=== PATIENT | male | born 1965 | race Two or more races ===

== ENCOUNTER → 2020-10-12 08:00 | Outpatient (CLI) | payer OTHER ==
[~2020-10-12 08:00] MED LIST: DICLOFENAC POTA50 MG PO
== END | disposition home or self-care (01) ==
LOC: LAB 08:00
PROVIDERS: ATTEND Urology
DX: I10 Essential (primary) hypertension (principal); N40.1 Benign prostatic hyperplasia with lower urinary tract symptoms; C61 Malignant neoplasm of prostate; G11.0 Congenital nonprogressive ataxia; N39.0 Urinary tract infection, site not specified

== ENCOUNTER → 2021-02-21 07:06 | Outpatient (CLI) | payer OTHER | END | disposition home or self-care (01) | LOC: LAB 07:06 | PROVIDERS: ATTEND Urology | DX: I10 Essential (primary) hypertension (principal); N39.0 Urinary tract infection, site not specified; C61 Malignant neoplasm of prostate ==

== ENCOUNTER 2021-04-07 10:28 | Outpatient (CLI) | payer OTHER | END 2021-04-07 10:30 | disposition home or self-care (01) | LOC: LAB 10:28 | PROVIDERS: ATTEND General Practice | DX: R05.8 Other specified cough (principal); J15.8 Pneumonia due to other specified bacteria ==

== ENCOUNTER 2021-04-27 08:00 | Outpatient (CLI) | payer OTHER | END 2021-04-27 08:30 | disposition home or self-care (01) | LOC: PPH VACUNA 08:00 | PROVIDERS: ATTEND Emergency Medicine Pediatric Emergency Medicine | DX: Z23 Encounter for immunization (principal) ==

== ENCOUNTER 2021-06-21 12:23 | Emergency (ER) | payer OTHER ==
[~2021-06-21] VITALS: Ht 185.4 cm; Wt 95.3 kg
[2021-06-21] MEDS ORDERED: KETO10TA2 PO (15:41)
[2021-06-21] MEDS ORDERED: NORFLEX100MG PO (15:41)
== END 2021-06-21 16:44 | disposition home or self-care (01) ==
LOC: ER 12:23
DX: M25.561 Pain in right knee (principal); I10 Essential (primary) hypertension; E03.9 Hypothyroidism, unspecified

== ENCOUNTER 2021-06-23 06:13 | Outpatient (CLI) | payer OTHER ==
[~2021-06-23 06:13] MED LIST changes: +KETO10TA2 PO; +NORFLEX100MG PO
== END 2021-06-23 06:14 | disposition home or self-care (01) ==
LOC: LAB 06:13
PROVIDERS: ATTEND General Practice
DX: Z00.00 Encounter for general adult medical examination without abnormal findings (principal); E78.5 Hyperlipidemia, unspecified; E55.9 Vitamin D deficiency, unspecified; Z85.46 Personal history of malignant neoplasm of prostate; E53.8 Deficiency of other specified B group vitamins; R42 Dizziness and giddiness; R10.2 Pelvic and perineal pain; M54.9 Dorsalgia, unspecified

== ENCOUNTER 2021-07-19 07:27 | Outpatient (CLI) | payer OTHER | END 2021-07-19 07:28 | disposition home or self-care (01) | LOC: NUCLEAR 07:27 | PROVIDERS: ATTEND General Practice | DX: M79.604 Pain in right leg (principal) ==

== ENCOUNTER 2021-07-20 07:39 | Outpatient (CLI) | payer OTHER | END 2021-07-20 07:42 | disposition home or self-care (01) | LOC: NUCLEAR 07:39 | PROVIDERS: ATTEND General Practice | DX: M79.604 Pain in right leg (principal) ==

== ENCOUNTER 2021-10-10 13:49 | Outpatient (CLI) | payer OTHER | END 2021-10-10 15:00 | disposition home or self-care (01) | LOC: LAB 13:49 | PROVIDERS: ATTEND Urology | DX: Z85.46 Personal history of malignant neoplasm of prostate (principal) ==

== ENCOUNTER 2021-11-03 06:46 | Outpatient (CLI) | payer OTHER | END 2021-11-03 07:44 | disposition home or self-care (01) | LOC: LAB 06:46 | PROVIDERS: ATTEND Urology | DX: R10.2 Pelvic and perineal pain (principal) ==

== ENCOUNTER 2021-11-03 07:12 | Outpatient (CLI) | payer OTHER | END 2021-11-03 09:57 | disposition home or self-care (01) | LOC: MRI 07:12 | PROVIDERS: ATTEND Urology | DX: C61 Malignant neoplasm of prostate (principal) | CPT/HCPCS: 72197 ==

== ENCOUNTER 2022-02-08 15:54 | Outpatient (CLI) | payer OTHER | END 2022-02-08 15:59 | disposition home or self-care (01) | LOC: LAB 15:54 | PROVIDERS: ATTEND Internal Medicine Gastroenterology | DX: Z03.818 Encounter for observation for suspected exposure to other biological agents ruled out (principal); Z20.822 Contact with and (suspected) exposure to COVID-19 ==

== ENCOUNTER 2022-11-03 08:12 | Outpatient (CLI) | payer OTHER | END 2022-11-03 08:13 | disposition home or self-care (01) | LOC: LAB 08:12 | PROVIDERS: ATTEND General Practice | DX: Z20.822 Contact with and (suspected) exposure to COVID-19 (principal); E78.5 Hyperlipidemia, unspecified; E55.9 Vitamin D deficiency, unspecified; C61 Malignant neoplasm of prostate; R10.9 Unspecified abdominal pain; R68.82 Decreased libido; Z00.00 Encounter for general adult medical examination without abnormal findings ==

== ENCOUNTER → 2023-02-06 | Outpatient (CLI) | payer OTHER | END | disposition home or self-care (01) | LOC: RAD 02-01 11:13 | PROVIDERS: ATTEND General Practice | DX: M54.51 Vertebrogenic low back pain (principal); M25.511 Pain in right shoulder; M79.641 Pain in right hand ==

== ENCOUNTER 2023-02-08 07:41 | Outpatient (CLI) | payer OTHER | END 2023-02-08 15:00 | disposition home or self-care (01) | LOC: TOM 07:41 | PROVIDERS: ATTEND General Practice | DX: R51.9 Headache, unspecified (principal); R42 Dizziness and giddiness ==

== ENCOUNTER 2023-02-19 07:53 | Outpatient (CLI) | payer OTHER ==
[2023-02-19 08:22] LABS: HEMATOCRIT 45.4 % (39.0-48.0); HEMOGLOBIN 14.8 g/dL (13-16.00); MEAN CELL VOLUME 91.6 fL (80.0-100.00); MEAN CORPUSCULAR HGB CONC 32.7 g/dl (32.0-36.0); PLATELET COUNT 268 K/uL (150-450); RED BLOOD COUNT 4.95 M/uL (4.00-6.00); RED CELL DISTRIBUTION WIDTH 13.6 % (11.5-14.5); URINE APPEARANCE Clear; URINE BILIRRUBIN Negative (NEGATIVE); URINE BLOOD Negative; URINE COLOR Yellow; URINE GLUCOSE Negative (NEGATIVE); URINE LEUKOCYTE Trace; URINE NITRATE Negative; URINE PROTEIN Negative (NEGATIVE); URINE UROBILINOGEN 0.2 E.U./dl
[2023-02-19 08:23] LABS: URINE WBC 2.1 uL (0.0-23.2)
[2023-02-19 08:30] LABS: URINE BACTERIA 0 uL (0.0-1933); URINE EPITHELIAL CELLS 0.7 uL (0.0-38.8)
[2023-02-19 09:14] LABS: ALBUMIN 3.7 gm/dL (3.4-5.0); BILIRUBIN TOTAL 0.57 mg/dL (0.3-1.2); CALCIUM 9.5 mg/dL (8.5-10.1); CREATININE SERUM 0.94 mg/dL (0.70-1.30); GFR 82.43; GLOBULINA 3.5 G/DL (2.4-3.5); POTASSIUM 4.8 mEq/L (3.5-5.1); TOTAL PROTEIN 7.2 gm/dL (6.4-8.2)
== END 2023-02-19 08:50 | disposition home or self-care (01) ==
LOC: LAB 07:53
DX: B35.1 Tinea unguium (principal)

== ENCOUNTER 2023-03-21 08:35 | Outpatient (CLI) | payer OTHER | END 2023-03-21 08:43 | disposition home or self-care (01) | LOC: MRI 08:35 | PROVIDERS: ATTEND Physical Medicine & Rehabilitation | DX: M54.16 Radiculopathy, lumbar region (principal) | CPT/HCPCS: 72148 ==

== ENCOUNTER 2023-04-13 09:06 | Outpatient (CLI) | payer OTHER ==
[2023-04-13 10:11] LABS: HEMATOCRIT 43.5 % (39.0-48.0); MEAN CORPUSCULAR HEMOGLOBIN 30.7 pg (27.00-32.0); MEAN CORPUSCULAR HGB CONC 34.5 g/dl (32.0-36.0); PLATELET COUNT 308 K/uL (150-450); RED BLOOD COUNT 4.89 M/uL (4.00-6.00); RED CELL DISTRIBUTION WIDTH 13.5 % (11.5-14.5)
[2023-04-13 10:19] LABS: URINE APPEARANCE Clear; URINE BILIRRUBIN Negative (NEGATIVE); URINE BLOOD Negative; URINE COLOR Yellow; URINE GLUCOSE Negative (NEGATIVE); URINE LEUKOCYTE Negative; URINE NITRATE Negative; URINE PROTEIN Negative (NEGATIVE); URINE UROBILINOGEN 0.2 E.U./dl
[2023-04-13 10:23] LABS: URINE RBC 12.6 uL (0.0-20.8)
[2023-04-13 10:28] LABS: URINE BACTERIA 2.5 uL (0.0-1933); URINE EPITHELIAL CELLS 0.4 uL (0.0-38.8); URINE WBC 1.6 uL (0.0-23.2)
[2023-04-13 11:05] LABS: ALBUMIN 3.6 gm/dL (3.4-5.0); ALKALINE PHOSPHATASE 107 U/L (50-136); ALT/SGPT 58 U/L (12-78); ANION GAP 9 (10.0-20.0); AST/SGOT 33 U/L (15-37); BILIRUBIN TOTAL 0.71 mg/dL (0.3-1.2); BLOOD UREA NITROGEN 17 mg/dL (7-18); BUN CREA RATIO 18 (7.0-25.0); CALCIUM 9.6 mg/dL (8.5-10.1); CARBON DIOXIDE 31 mEq/L (21-32); CHLORIDE 106 mmol/L (98-107); CHOL HDL RATIO 4.3 (0-5.0); CHOLESTEROL 170 mg/dL (0-200); CREATININE SERUM 0.94 mg/dL (0.70-1.30); GFR 82.14; GLOBULINA 3.5 G/DL (2.4-3.5); GLUCOSE FASTING 100 mg/dL (65-100); HDL 40 mg/dl (40-60); LDL 112 mg/dl (0-130); OSMOLALITY SERUM 283 MOSM/KG (275-295); POTASSIUM 4.75 mEq/L (3.5-5.1); SODIUM 141 mmol/L (136-145); TOTAL PROTEIN 7.1 gm/dL (6.4-8.2); TRIGLYCERIDES 91 mg/dL (0-150); VLDL 18 (0-39)
[2023-04-13 11:06] LABS: PROSTATIC SPECIFIC ANTIGEN < 0.010 NG/ML (0.010-4.00)
== END 2023-04-13 09:07 | disposition home or self-care (01) ==
LOC: LAB 09:06
PROVIDERS: ATTEND Urology
DX: C61 Malignant neoplasm of prostate (principal); N40.0 Benign prostatic hyperplasia without lower urinary tract symptoms; R31.29 Other microscopic hematuria; D64.9 Anemia, unspecified; I10 Essential (primary) hypertension; Z12.11 Encounter for screening for malignant neoplasm of colon; E29.1 Testicular hypofunction

== ENCOUNTER 2023-07-31 12:18 | Outpatient (CLI) | payer OTHER | END 2023-07-31 15:30 | disposition home or self-care (01) | LOC: TOM 12:18 | PROVIDERS: ATTEND Otolaryngology Otology & Neurotology | DX: J34.2 Deviated nasal septum (principal); J34.3 Hypertrophy of nasal turbinates; J31.0 Chronic rhinitis ==

== ENCOUNTER 2023-08-22 08:29 | Outpatient (CLI) | payer OTHER | END 2023-08-22 08:35 | disposition home or self-care (01) | LOC: SONOGRAMA 08:29 | PROVIDERS: ATTEND Internal Medicine Gastroenterology | DX: R10.9 Unspecified abdominal pain (principal); B96.81 Helicobacter pylori [H. pylori] as the cause of diseases classified elsewhere ==

== ENCOUNTER 2023-12-06 07:25 | Outpatient (CLI) | payer OTHER ==
[2023-12-06 09:18] LABS: HEMATOCRIT 44.5 % (39.0-48.0); HEMOGLOBIN 15.3 g/dL (13-16.00); MEAN CELL VOLUME 90.1 fL (80.0-100.00); MEAN CORPUSCULAR HGB CONC 34.4 g/dl (32.0-36.0); PLATELET COUNT 254 K/uL (150-450); RED BLOOD COUNT 4.94 M/uL (4.00-6.00)
[2023-12-06 10:01] LABS: ALBUMIN 3.8 gm/dL (3.4-5.0); ALKALINE PHOSPHATASE 134 U/L (50-136); ALT/SGPT 53 U/L (12-78); ANION GAP 14 (10.0-20.0); AST/SGOT 33 U/L (15-37); BLOOD UREA NITROGEN 11 mg/dL (7-18); BUN CREA RATIO 13 (7.0-25.0); CALCIUM 9.9 mg/dL (8.5-10.1); CARBON DIOXIDE 32 mEq/L (21-32); CHLORIDE 106 mmol/L (98-107); CREATININE SERUM 0.87 mg/dL (0.70-1.30); GFR 89.81; GLOBULINA 3.4 G/DL (2.4-3.5); GLUCOSE FASTING 101 mg/dL (65-100); LIPASE 27 U/L (13-75); OSMOLALITY SERUM 292 MOSM/KG (275-295); SODIUM 147 mmol/L (136-145); TOTAL PROTEIN 7.2 gm/dL (6.4-8.2)
[2023-12-06 10:03] LABS: PROSTATIC SPECIFIC ANTIGEN < 0.010 NG/ML (0.010-4.00)
[2023-12-06 10:24] LABS: VITAMIN D3 25 HYDROXY 26.87 ng/ml (30-120)
== END 2023-12-06 07:30 | disposition home or self-care (01) ==
LOC: LAB 07:25
DX: I73.9 Peripheral vascular disease, unspecified (principal); M72.2 Plantar fascial fibromatosis; E78.2 Mixed hyperlipidemia; E78.5 Hyperlipidemia, unspecified; R73.9 Hyperglycemia, unspecified; E53.8 Deficiency of other specified B group vitamins; E55.9 Vitamin D deficiency, unspecified; Z13.29 Encounter for screening for other suspected endocrine disorder; Z85.46 Personal history of malignant neoplasm of prostate; M54.50 Low back pain, unspecified

== ENCOUNTER → 2024-01-17 08:39 | Outpatient (CLI) | payer OTHER | END | disposition home or self-care (01) | LOC: LAB 06:57 | DX: E11.9 Type 2 diabetes mellitus without complications (principal) ==

== ENCOUNTER 2024-10-08 07:19 | Outpatient (CLI) | payer OTHER ==
[2024-10-08 08:34] LABS: BASO % 0.8 % (0.1-1.2); EOS # 0.27 (0.04-0.54); EOS % 4.3 % (0.7-7.0); HEMATOCRIT 45.7 % (40.1-51.0); HEMOGLOBIN 15.5 g/dL (13.7-17.5); LYMPH # 2.07 (1.18-3.74); MEAN CORPUSCULAR HEMOGLOBIN 30.3 pg (25.6-32.2); MONO # 0.48 (0.24-0.82); MONO % 7.7 % (4.7-12.5); NEUT # 3.39 (1.56-6.13); PLATELET COUNT 247 K/uL (163-369); RED BLOOD COUNT 5.12 M/uL (4.63-6.08); RED CELL DISTRIBUTION WIDTH 13.1 % (11.6-14.4)
[2024-10-08 09:25] LABS: CHOLESTEROL 217 mg/dL (0-200); HDL 54 mg/dl (40-60); LDL 147 mg/dl (0-130); TRIGLYCERIDES 82 mg/dL (0-150); VLDL 16 (0-39)
[2024-10-08 09:30] LABS: PROSTATIC SPECIFIC ANTIGEN < 0.010 NG/ML (0.010-4.00)
== END 2024-10-08 08:41 | disposition home or self-care (01) ==
LOC: LAB 07:19
DX: C61 Malignant neoplasm of prostate (principal)

== ENCOUNTER → 2024-11-21 08:20 | Outpatient (CLI) | payer OTHER ==
[2024-11-21 10:08] LABS: BASO % 0.6 % (0.1-1.2); EOS # 0.27 (0.04-0.54); EOS % 4.0 % (0.7-7.0); LYMPH # 2.10 (1.18-3.74); LYMPH % 30.8 % (19.3-53.1); MEAN PLATELET VOLUME 10.10 fl (9.4-12.4); MONO # 0.49 (0.24-0.82); MONO % 7.2 % (4.7-12.5); NEUT # 3.91 (1.56-6.13); NEUT % 57.3 % (34.0-71.1); RED CELL DISTRIBUTION WIDTH 13.1 % (11.6-14.4); URINE APPEARANCE Clear; URINE BILIRRUBIN Negative (NEGATIVE); URINE BLOOD Negative; URINE COLOR Yellow; URINE GLUCOSE Negative (NEGATIVE); URINE KETONE Negative (NEGATIVE); URINE LEUKOCYTE Negative; URINE NITRATE Negative; URINE PROTEIN Negative (NEGATIVE); URINE UROBILINOGEN 0.2 E.U./dl
[2024-11-21 10:11] LABS: URINE RBC 10.1 uL (0.0-20.8)
[2024-11-21 10:19] LABS: URINE BACTERIA 3.5 uL (0.0-1933); URINE CAST 0.14 uL (0.0-1.40); URINE EPITHELIAL CELLS 1.0 uL (0.0-38.8); URINE WBC 0.9 uL (0.0-23.2)
[2024-11-21 10:45] LABS: ALT/SGPT 52.0 U/L (12-78); AST/SGOT 33.0 U/L (15-37); BILIRUBIN TOTAL 0.83 mg/dL (0.3-1.2); BUN CREA RATIO 21.0 (7.0-25.0); CHOL HDL RATIO 3.9 (0-5.0); CREATININE SERUM 0.9 mg/dL (0.70-1.30); FE 134.0 ug/dl (65-175); FREE TRIODOTIRONINE 2.54 pg/ml (2.18-3.98); GFR 86.07; GLOBULINA 3.4 G/DL (2.4-3.5); GLUCOSE FASTING 99.0 mg/dL (65-100); HDL 53.0 mg/dl (40-60); LDL 136.0 mg/dl (0-130); OSMOLALITY SERUM 282.0 MOSM/KG (275-295); T4 FREE 0.94 NG/ML (0.76-1.46); TSH 1.26 uIU/mL (0.358-3.74); VLDL 18.0 (0-39)
[2024-11-21 11:00] LABS: FOLIC ACID 19.48 ng/ml (4.78-20); VITAMIN D3 25 HYDROXY 30.0 ng/ml (30-120)
[2024-11-24 05:07] LABS: INSULIN LEVELS 11.8 uIU/mL (2.6-24.9)
[2024-11-24 09:08] LABS: ANTI THYROID PEROXIDASE 42 IU/mL (0-34)
== END | disposition home or self-care (01) ==
LOC: LAB 08:20
PROVIDERS: ATTEND Internal Medicine Endocrinology, Diabetes & Metabolism
DX: E11.65 Type 2 diabetes mellitus with hyperglycemia (principal); E03.9 Hypothyroidism, unspecified; D64.9 Anemia, unspecified; E53.8 Deficiency of other specified B group vitamins; E78.2 Mixed hyperlipidemia; E55.9 Vitamin D deficiency, unspecified; R97.0 Elevated carcinoembryonic antigen [CEA]; Z12.11 Encounter for screening for malignant neoplasm of colon; R79.82 Elevated C-reactive protein (CRP); R70.0 Elevated erythrocyte sedimentation rate; N40.0 Benign prostatic hyperplasia without lower urinary tract symptoms; N39.0 Urinary tract infection, site not specified

== ENCOUNTER 2024-12-08 07:56 | Outpatient (CLI) | payer OTHER | END 2024-12-08 07:59 | disposition home or self-care (01) | LOC: SONOGRAMA 07:56 | PROVIDERS: ATTEND Internal Medicine Endocrinology, Diabetes & Metabolism | DX: E04.1 Nontoxic single thyroid nodule (principal); R74.01 Elevation of levels of liver transaminase levels; K74.00 Hepatic fibrosis, unspecified ==

== ENCOUNTER 2025-02-12 09:00 | Outpatient (CLI) | payer OTHER ==
[2025-02-12 09:53] LABS: BASO % 0.7 % (0.1-1.2); EOS # 0.28 (0.04-0.54); EOS % 4.8 % (0.7-7.0); LYMPH # 1.99 (1.18-3.74); LYMPH % 34.0 % (19.3-53.1); MEAN PLATELET VOLUME 9.50 fl (9.4-12.4); MONO # 0.47 (0.24-0.82); MONO % 8.0 % (4.7-12.5); NEUT # 3.07 (1.56-6.13); NEUT % 52.3 % (34.0-71.1); RED CELL DISTRIBUTION WIDTH 13.0 % (11.6-14.4)
[2025-02-12 09:57] LABS: URINE APPEARANCE Clear; URINE BILIRRUBIN Negative (NEGATIVE); URINE BLOOD Negative; URINE COLOR Yellow; URINE GLUCOSE Negative (NEGATIVE); URINE KETONE Negative (NEGATIVE); URINE LEUKOCYTE Negative; URINE NITRATE Negative; URINE PROTEIN Negative (NEGATIVE); URINE UROBILINOGEN 0.2 E.U./dl
[2025-02-12 09:59] LABS: URINE RBC 10.5 uL (0.0-20.8)
[2025-02-12 10:01] LABS: URINE BACTERIA 2.3 uL (0.0-1933); URINE CAST 0.00 uL (0.0-1.40); URINE EPITHELIAL CELLS 0.1 uL (0.0-38.8); URINE WBC 0.9 uL (0.0-23.2)
[2025-02-12 10:44] LABS: BUN CREA RATIO 19.0 (7.0-25.0); CREATININE SERUM 0.84 mg/dL (0.70-1.30); GFR 93.21; GLUCOSE FASTING 111.0 mg/dL (65-100); OSMOLALITY SERUM 287.0 MOSM/KG (275-295)
== END 2025-02-12 09:01 | disposition home or self-care (01) ==
LOC: LAB 09:00
DX: Z00.00 Encounter for general adult medical examination without abnormal findings (principal)

== ENCOUNTER 2025-05-05 07:13 | Outpatient (CLI) | payer OTHER | END 2025-05-05 07:14 | disposition home or self-care (01) | LOC: NUCLEAR 07:13 | PROVIDERS: ATTEND Internal Medicine Gastroenterology | DX: K30 Functional dyspepsia (principal); R19.7 Diarrhea, unspecified; R10.9 Unspecified abdominal pain ==